=== PATIENT | male | born 1940 | race Caucasian/White ===

== ENCOUNTER 2019-03-29 18:00 | Inpatient (IN) | payer OTHER ==
[~2019-03-29] VITALS: Ht 182.9 cm; Wt 77.3 kg
[~2019-03-29 18:00] MED LIST: ACET325T45 GTB; ALBU2.5V3 NEB; AMIN30LI GTB; APIX2.5T GTB; BALS60OI TOP; BENG30OI TOP; BICT1TAB GTB; BISA10SU55 RC; BISA5TAB6 GTB; BROVANA NEB; CHOL4POW GTB; FERR220S17 GTB; FURO-109 GTB; FURO40TA4 PO; GABA250S2 GTB; GLUC1CAP9 GTB; HYDR-3671 GTB; HYDR-3671 PO; HYDR-3980 GTB; IPRA3AMP29 INHALATION; LANS15CA5 PO; LOPE1LIQ11 GTB; MAGN400O19 GTB; MENT10LO MM; METH-493 GTB; METH500T8 GTB; METO25TA4 GTB; MULT-105 GTB; MUPI22OI2 TOP; NA P133E39 RC; NST15PW TOP; ONDA4TAB13 GTB; PANT40TA4 GTB; POLY17PO6 PO; THIA100T56 GTB; VIT500LI GTB; ZINC220C5 GTB; ZOLP5TAB GTB; ZOLP5TAB PO
[2019-03-29 18:15] VITALS: Ht 182.9 cm; Wt 77.3 kg
[2019-03-29] MEDS ORDERED: VANCOMYCIN 1 GM (PMX) 250 ML IVPB STA (20:33)
[2019-03-29] MEDS ORDERED: CEFEPIME 1GM/50 ML (PMX) 50 ML IVPB STA (20:33)
[2019-03-29] MEDS ORDERED: VANCOMYCIN IV PER PHARMACY XX SCH (22:00)
[2019-03-29] MEDS ORDERED: NACL 0.9% 3 ML SYG IV SCH (22:00)
[2019-03-29] MEDS ORDERED: ACETAMINOPHEN 650 MG SUPP PR PRN (22:00)
[2019-03-29] MEDS ORDERED: ONDANSETRON 4 MG INJ IV PRN (22:00)
[2019-03-29] MEDS: PIPER-TAZO 3.375 GM IV (PMX) 100 ML IVPB SCH (23:00)
[2019-03-30] VITALS (7 sets, daily range): BP systolic 111–127; BP diastolic 74–84; PULSE 97–113; RESP 18–22
[2019-03-30] MEDS ORDERED: PIPER-TAZO 3.375 GM IV (PMX) 100 ML IVPB SCH
[2019-03-30] MEDS ORDERED: METOPROLOL 5 MG INJ IV ONE
[2019-03-30] MEDS ORDERED: MAGNESIUM HYDROXIDE 30ML CUP GTB PRN (02:30)
[2019-03-30] MEDS ORDERED: ALBUTEROL 0.083% (NEB) 2.5 MG/3 ML AMP NEB PRN (02:30)
[2019-03-30] MEDS ORDERED: ACETAMINOPHEN 325 MG TAB GTB PRN (02:30)
[2019-03-30] MEDS: METOPROLOL 25 MG TAB GTB SCH ×2 (03:52→08:40)
[2019-03-30] MEDS: SOD CHLORIDE 0.9% 1,000 ML IV SCH ×2 (03:52→11:12)
[2019-03-30] MEDS: PIPER-TAZO 3.375 GM IV (PMX) 100 ML IVPB SCH ×3 (05:32→21:32)
[2019-03-30] MEDS: METHOCARBAMOL 500 MG TAB GTB SCH ×3 (08:39→23:19)
[2019-03-30] MEDS: METHIMAZOLE 5 MG TAB GTB SCH (08:40)
[2019-03-30] MEDS: PANTOPRAZOLE 40 MG INJ IV SCH (11:11)
[2019-03-30] MEDS ORDERED: TRIMETHOPRIM/SULFAMETHOX (DS) TAB PO SCH (14:00)
[2019-03-30] MEDS: NYSTATIN 30 GM POWDER BTL TOP SCH (14:56)
[2019-03-30] MEDS: BALSAM PERU/CASTOR OIL 60 GM TUBE TOP SCH (14:56)
[2019-03-30] MEDS ORDERED: CASPOFUNGIN 50 MG in SOD CHLORIDE 0.9% 250 ML IVPB SCH (15:30)
[2019-03-30] MEDS ORDERED: NACL 3% FOR INHALATION 15 ML NEBU NEB ONE (16:00)
[2019-03-30] MEDS ORDERED: SOD CHLORIDE 0.9% 1,000 ML IV SCH (16:00)
[2019-03-30] MEDS ORDERED: DILTIAZEM 25 MG INJ IV PRN (17:30)
[2019-03-30] MEDS ORDERED: LIDOCAINE 1% (MPF) 5 ML VIAL ONE (18:20)
[2019-03-30] MEDS: METOPROLOL 50 MG TAB GTB SCH (21:30)
[2019-03-30] MEDS: VANCOMYCIN 1 GM 250 ML IVPB SCH (23:19)
[2019-03-31] VITALS (7 sets, daily range): BP systolic 115–155; BP diastolic 68–89; PULSE 79–110; RESP 18–20
[2019-03-31] MEDS ORDERED: VANCOMYCIN 1 GM 250 ML IVPB SCH
[2019-03-31] MEDS: PANTOPRAZOLE 40 MG INJ IV SCH (06:31)
[2019-03-31] MEDS: PIPER-TAZO 3.375 GM IV (PMX) 100 ML IVPB SCH ×3 (06:31→21:38)
[2019-03-31] MEDS: METHIMAZOLE 5 MG TAB GTB SCH (08:21)
[2019-03-31] MEDS: ZINC SULFATE 220 MG CAP GTB SCH (08:21)
[2019-03-31] MEDS: METHOCARBAMOL 500 MG TAB GTB SCH ×3 (08:21→21:38)
[2019-03-31] MEDS: POLYETHYLENE GLYCOL 17 GM PACKET PO SCH (08:22)
[2019-03-31] MEDS: BIKTARVY PO SCH (08:22)
[2019-03-31] MEDS: METOPROLOL 50 MG TAB GTB SCH ×2 (08:22→21:38)
[2019-03-31] MEDS: BALSAM PERU/CASTOR OIL 60 GM TUBE TOP SCH (08:25)
[2019-03-31] MEDS: NYSTATIN 30 GM POWDER BTL TOP SCH (08:25)
[2019-03-31] MEDS ORDERED: TRIMETHOPRIM/SULFAMETHOX (DS) TAB PO SCH (09:00)
[2019-03-31] MEDS ORDERED: METHIMAZOLE 5 MG TAB PO ONE (10:30)
[2019-03-31] MEDS ORDERED: DIGOXIN 500 MCG INJ IV ONE (15:00)
[2019-03-31] MEDS: ARFORMOTEROL TARTRATE 15MCG/2 ML AMP NEB SCH (20:15)
[2019-03-31] MEDS: VANCOMYCIN 1 GM 250 ML IVPB SCH (22:42)
[2019-04-01] MEDS ORDERED: ZOLPIDEM 5 MG TAB PO ONE (02:44)
[2019-04-01 04:00] VITALS: BP 128/85; PULSE 82; RESP 20
[2019-04-01] MEDS: PIPER-TAZO 3.375 GM IV (PMX) 100 ML IVPB SCH ×3 (06:07→22:08)
[2019-04-01] MEDS: PANTOPRAZOLE 40 MG INJ IV SCH (06:07)
[2019-04-01 07:59] VITALS: BP 114/63; PULSE 81; RESP 18
[2019-04-01] MEDS: POLYETHYLENE GLYCOL 17 GM PACKET PO SCH (09:00)
[2019-04-01] MEDS: METHOCARBAMOL 500 MG TAB GTB SCH ×3 (09:04→21:02)
[2019-04-01] MEDS: ZINC SULFATE 220 MG CAP GTB SCH (09:04)
[2019-04-01] MEDS: METHIMAZOLE 5 MG TAB GTB SCH (09:04)
[2019-04-01] MEDS: METOPROLOL 50 MG TAB GTB SCH ×2 (09:05→21:03)
[2019-04-01] MEDS: BALSAM PERU/CASTOR OIL 60 GM TUBE TOP SCH (09:05)
[2019-04-01] MEDS: FUROSEMIDE 20 MG INJ IV SCH (09:05)
[2019-04-01] MEDS: NYSTATIN 30 GM POWDER BTL TOP SCH (09:06)
[2019-04-01] MEDS: ARFORMOTEROL TARTRATE 15MCG/2 ML AMP NEB SCH ×2 (10:29→20:55)
[2019-04-01] MEDS: BIKTARVY PO SCH (11:11)
[2019-04-01 11:32] VITALS: BP 132/65; PULSE 74; RESP 18
[2019-04-01] MEDS ORDERED: POTASSIUM CHLORIDE 20 MEQ POWDER FOR ORAL SOLN GTB ONE (12:00)
[2019-04-01] MEDS: HYDROCODONE/APAP (5/325) TAB PO PRN (14:05)
[2019-04-01 15:15] VITALS: BP 111/57; PULSE 77; RESP 18
[2019-04-01 20:40] VITALS: BP 136/89; PULSE 78; RESP 22
[2019-04-01] MEDS: MUPIROCIN 2% 22 GM OINT TOP SCH (21:03)
[2019-04-01] MEDS: ZOLPIDEM 5 MG TAB PO PRN (22:11)
[2019-04-01] MEDS: VANCOMYCIN 1 GM 250 ML IVPB SCH (22:45)
[2019-04-01 23:39] VITALS: BP 134/73; PULSE 84; RESP 22
[2019-04-02] VITALS (9 sets, daily range): BP systolic 140–173; BP diastolic 67–91; PULSE 69–89; RESP 18–22
[2019-04-02] MEDS: PANTOPRAZOLE 40 MG INJ IV SCH (05:48)
[2019-04-02] MEDS: PIPER-TAZO 3.375 GM IV (PMX) 100 ML IVPB SCH ×3 (05:48→21:29)
[2019-04-02] MEDS: ARFORMOTEROL TARTRATE 15MCG/2 ML AMP NEB SCH ×2 (08:48→20:50)
[2019-04-02] MEDS: METHIMAZOLE 5 MG TAB GTB SCH (09:21)
[2019-04-02] MEDS: ZINC SULFATE 220 MG CAP GTB SCH (09:21)
[2019-04-02] MEDS: METHOCARBAMOL 500 MG TAB GTB SCH ×3 (09:21→21:28)
[2019-04-02] MEDS: METOPROLOL 50 MG TAB GTB SCH ×2 (09:22→21:28)
[2019-04-02] MEDS: BALSAM PERU/CASTOR OIL 60 GM TUBE TOP SCH (09:22)
[2019-04-02] MEDS: POLYETHYLENE GLYCOL 17 GM PACKET PO SCH (09:22)
[2019-04-02] MEDS: MUPIROCIN 2% 22 GM OINT TOP SCH ×2 (09:22→21:29)
[2019-04-02] MEDS: NYSTATIN 30 GM POWDER BTL TOP SCH (09:27)
[2019-04-02] MEDS: FUROSEMIDE 20 MG INJ IV SCH (09:46)
[2019-04-02] MEDS: BIKTARVY PO SCH (09:46)
[2019-04-02] MEDS ORDERED: POLYETHYLENE GLYCOL 17 GM PACKET PO PRN (14:00)
[2019-04-02] MEDS ORDERED: MAGNESIUM SULFATE 2 GM/50 ML 50 ML IVPB ONE (20:00)
[2019-04-02] MEDS: ZOLPIDEM 5 MG TAB PO PRN (21:29)
[2019-04-03] VITALS (7 sets, daily range): BP systolic 115–150; BP diastolic 55–88; PULSE 65–92; RESP 18–20
[2019-04-03] MEDS: HYDROCODONE/APAP (5/325) TAB PO PRN (04:58)
[2019-04-03] MEDS: PIPER-TAZO 3.375 GM IV (PMX) 100 ML IVPB SCH ×3 (05:00→21:37)
[2019-04-03] MEDS: PANTOPRAZOLE 40 MG INJ IV SCH (05:00)
[2019-04-03] MEDS: NYSTATIN 30 GM POWDER BTL TOP SCH (09:00)
[2019-04-03] MEDS: BALSAM PERU/CASTOR OIL 60 GM TUBE TOP SCH (09:19)
[2019-04-03] MEDS: METHOCARBAMOL 500 MG TAB GTB SCH (09:19)
[2019-04-03] MEDS: BIKTARVY PO SCH (09:19)
[2019-04-03] MEDS: METHIMAZOLE 5 MG TAB GTB SCH (09:19)
[2019-04-03] MEDS: MUPIROCIN 2% 22 GM OINT TOP SCH ×2 (09:19→21:37)
[2019-04-03] MEDS: ZINC SULFATE 220 MG CAP GTB SCH (09:19)
[2019-04-03] MEDS: FUROSEMIDE 20 MG INJ IV SCH (09:20)
[2019-04-03] MEDS: METOPROLOL 50 MG TAB GTB SCH ×2 (09:20→21:39)
[2019-04-03] MEDS: ARFORMOTEROL TARTRATE 15MCG/2 ML AMP NEB SCH ×2 (09:58→20:54)
[2019-04-03] MEDS ORDERED: METHOCARBAMOL 500 MG TAB GTB PRN (10:30)
[2019-04-03] MEDS ORDERED: CHOLESTYRAMINE 4 GM PACKET GTB SCH (21:00)
[2019-04-03] MEDS: CHOLESTYRAMINE 4 GM PACKET GTB SCH (21:38)
[2019-04-03] MEDS: ZOLPIDEM 5 MG TAB PO PRN (21:49)
[2019-04-03] MEDS ORDERED: VANCOMYCIN 1.25 GM/NS 250 ML 250 ML IVPB SCH (23:00)
[2019-04-04] VITALS (7 sets, daily range): BP systolic 103–144; BP diastolic 62–85; PULSE 65–90; RESP 18–19
[2019-04-04] MEDS: PANTOPRAZOLE 40 MG INJ IV SCH (05:31)
[2019-04-04] MEDS: PIPER-TAZO 3.375 GM IV (PMX) 100 ML IVPB SCH ×3 (05:32→21:20)
[2019-04-04] MEDS: HYDROCODONE/APAP (5/325) TAB PO PRN (05:40)
[2019-04-04] MEDS: METHIMAZOLE 5 MG TAB GTB SCH (08:28)
[2019-04-04] MEDS: METOPROLOL 50 MG TAB GTB SCH ×2 (08:29→21:24)
[2019-04-04] MEDS: MUPIROCIN 2% 22 GM OINT TOP SCH ×2 (08:29→21:25)
[2019-04-04] MEDS: METHOCARBAMOL 500 MG TAB PO SCH (08:29)
[2019-04-04] MEDS: BALSAM PERU/CASTOR OIL 60 GM TUBE TOP SCH (08:30)
[2019-04-04] MEDS: ZINC SULFATE 220 MG CAP GTB SCH (08:31)
[2019-04-04] MEDS: FUROSEMIDE 20 MG INJ IV SCH (08:32)
[2019-04-04] MEDS: NYSTATIN 30 GM POWDER BTL TOP SCH (08:56)
[2019-04-04] MEDS: BIKTARVY PO SCH ×2 (09:00→15:05)
[2019-04-04] MEDS ORDERED: HEPARIN 5,000 UNIT/1 ML VIAL SC SCH (09:00)
[2019-04-04] MEDS: ARFORMOTEROL TARTRATE 15MCG/2 ML AMP NEB SCH ×2 (12:08→20:35)
[2019-04-04] MEDS: CHOLESTYRAMINE 4 GM PACKET GTB SCH ×2 (12:46→21:20)
[2019-04-04] MEDS: ZOLPIDEM 5 MG TAB PO PRN (21:20)
[2019-04-05] MEDS: HYDROCODONE/APAP (5/325) TAB PO PRN ×2 (02:19→23:42)
[2019-04-05 04:03] VITALS: BP 118/78; PULSE 72; RESP 19
[2019-04-05] MEDS: PANTOPRAZOLE 40 MG INJ IV SCH (05:36)
[2019-04-05] MEDS: PIPER-TAZO 3.375 GM IV (PMX) 100 ML IVPB SCH ×3 (05:36→21:13)
[2019-04-05 08:00] VITALS: BP 138/85; PULSE 84; RESP 19
[2019-04-05] MEDS: BIKTARVY PO SCH (09:27)
[2019-04-05] MEDS: CHOLESTYRAMINE 4 GM PACKET GTB SCH ×2 (09:27→21:13)
[2019-04-05] MEDS: ZINC SULFATE 220 MG CAP GTB SCH (09:27)
[2019-04-05] MEDS: METOPROLOL 50 MG TAB GTB SCH ×2 (09:27→21:14)
[2019-04-05] MEDS: METHOCARBAMOL 500 MG TAB PO SCH (09:28)
[2019-04-05] MEDS: FUROSEMIDE 20 MG INJ IV SCH (09:28)
[2019-04-05] MEDS: METHIMAZOLE 5 MG TAB GTB SCH (09:28)
[2019-04-05] MEDS: MUPIROCIN 2% 22 GM OINT TOP SCH ×2 (09:29→21:13)
[2019-04-05] MEDS: BALSAM PERU/CASTOR OIL 60 GM TUBE TOP SCH (09:29)
[2019-04-05 11:22] VITALS: BP 136/66; PULSE 68; RESP 19
[2019-04-05] MEDS: ARFORMOTEROL TARTRATE 15MCG/2 ML AMP NEB SCH ×2 (12:33→19:57)
[2019-04-05 15:38] VITALS: BP 139/85; PULSE 80; RESP 19
[2019-04-05 19:29] VITALS: BP 152/88; PULSE 79; RESP 18
[2019-04-05] MEDS: NYSTATIN 30 GM POWDER BTL TOP SCH (19:39)
[2019-04-05] MEDS: ZOLPIDEM 5 MG TAB PO PRN (23:37)
[2019-04-06] VITALS (8 sets, daily range): BP systolic 112–154; BP diastolic 62–86; PULSE 64–90; RESP 18–20
[2019-04-06] MEDS: PANTOPRAZOLE 40 MG INJ IV SCH (06:20)
[2019-04-06] MEDS: ARFORMOTEROL TARTRATE 15MCG/2 ML AMP NEB SCH ×2 (09:18→19:38)
[2019-04-06] MEDS: BIKTARVY PO SCH (10:06)
[2019-04-06] MEDS: NYSTATIN 30 GM POWDER BTL TOP SCH (10:06)
[2019-04-06] MEDS: METHOCARBAMOL 500 MG TAB PO SCH (10:06)
[2019-04-06] MEDS: METHIMAZOLE 5 MG TAB GTB SCH (10:07)
[2019-04-06] MEDS: CHOLESTYRAMINE 4 GM PACKET GTB SCH ×2 (10:07→21:00)
[2019-04-06] MEDS: ZINC SULFATE 220 MG CAP GTB SCH (10:07)
[2019-04-06] MEDS: METOPROLOL 50 MG TAB GTB SCH ×2 (10:07→22:52)
[2019-04-06] MEDS: FUROSEMIDE 20 MG INJ IV SCH (10:08)
[2019-04-06] MEDS: MUPIROCIN 2% 22 GM OINT TOP SCH ×2 (10:08→21:00)
[2019-04-06] MEDS: BALSAM PERU/CASTOR OIL 60 GM TUBE TOP SCH (10:08)
[2019-04-06] MEDS: HYDROCODONE/APAP (5/325) TAB PO PRN (10:16)
[2019-04-06] MEDS ORDERED: BARIUM SULFATE 135 ML (E-Z HD) PO ONE (12:57)
[2019-04-07] VITALS (7 sets, daily range): BP systolic 128–155; BP diastolic 73–86; PULSE 68–94; RESP 18–22
[2019-04-07] MEDS: CHOLESTYRAMINE 4 GM PACKET GTB SCH ×3 (01:14→20:29)
[2019-04-07] MEDS: HYDROCODONE/APAP (5/325) TAB PO PRN ×2 (04:45→20:32)
[2019-04-07] MEDS: PANTOPRAZOLE 40 MG INJ IV SCH (06:33)
[2019-04-07] MEDS: ARFORMOTEROL TARTRATE 15MCG/2 ML AMP NEB SCH ×2 (09:00→20:00)
[2019-04-07] MEDS: ZINC SULFATE 220 MG CAP GTB SCH (09:54)
[2019-04-07] MEDS: METHIMAZOLE 5 MG TAB GTB SCH (09:54)
[2019-04-07] MEDS: FUROSEMIDE 20 MG INJ IV SCH (09:55)
[2019-04-07] MEDS: METOPROLOL 50 MG TAB GTB SCH ×2 (09:57→20:31)
[2019-04-07] MEDS: BALSAM PERU/CASTOR OIL 60 GM TUBE TOP SCH (10:00)
[2019-04-07] MEDS: MUPIROCIN 2% 22 GM OINT TOP SCH ×2 (10:00→20:32)
[2019-04-07] MEDS: NYSTATIN 30 GM POWDER BTL TOP SCH (10:00)
[2019-04-07] MEDS: BIKTARVY PO SCH (12:06)
[2019-04-07] MEDS ORDERED: LOPERAMIDE HCL 1 MG/7.5 ML GTB PRN (16:30)
[2019-04-07] MEDS: ZOLPIDEM 5 MG TAB PO PRN (20:31)
[2019-04-08 00:45] VITALS: BP 137/81; PULSE 84; RESP 21
[2019-04-08 04:28] VITALS: BP 141/83; PULSE 81; RESP 22
[2019-04-08] MEDS: PANTOPRAZOLE 40 MG INJ IV SCH (05:50)
[2019-04-08] MEDS ORDERED: DIPHENHYDRAMINE 50 MG INJ IV ONE (06:00)
[2019-04-08] MEDS: ARFORMOTEROL TARTRATE 15MCG/2 ML AMP NEB SCH ×2 (07:45→20:00)
[2019-04-08 07:48] VITALS: BP 142/79; PULSE 79; RESP 20
[2019-04-08] MEDS: BIKTARVY PO SCH (09:29)
[2019-04-08] MEDS: METOPROLOL 50 MG TAB GTB SCH ×2 (09:35→21:29)
[2019-04-08] MEDS: FUROSEMIDE 20 MG INJ IV SCH (09:36)
[2019-04-08] MEDS: METHIMAZOLE 5 MG TAB GTB SCH (09:36)
[2019-04-08] MEDS: HYDROCODONE/APAP (5/325) TAB PO PRN ×3 (09:36→21:28)
[2019-04-08] MEDS: NYSTATIN 30 GM POWDER BTL TOP SCH (09:37)
[2019-04-08] MEDS: BALSAM PERU/CASTOR OIL 60 GM TUBE TOP SCH (09:37)
[2019-04-08] MEDS: MUPIROCIN 2% 22 GM OINT TOP SCH (09:37)
[2019-04-08] MEDS: ZINC SULFATE 220 MG CAP GTB SCH (09:37)
[2019-04-08] MEDS: CHOLESTYRAMINE 4 GM PACKET GTB SCH ×3 (09:38→21:28)
[2019-04-08 12:22] VITALS: BP 119/64; PULSE 73; RESP 20
[2019-04-08 16:03] VITALS: BP 133/94; PULSE 91; RESP 20
[2019-04-08 19:16] VITALS: BP 123/70; PULSE 90; RESP 21
[2019-04-08] MEDS: ZOLPIDEM 5 MG TAB PO PRN (21:30)
[2019-04-09] MEDS ORDERED: DIPHENHYDRAMINE 25 MG CAP PO PRN (01:00)
[2019-04-09 02:00] VITALS: BP 131/73; PULSE 88; RESP 21
[2019-04-09] MEDS: CEPASTAT LOZENGE MT PRN ×3 (04:28→21:52)
[2019-04-09] MEDS: PANTOPRAZOLE (EC) 40 MG TAB PO SCH (06:12)
[2019-04-09 07:09] VITALS: BP 122/66; PULSE 95; RESP 20
[2019-04-09] MEDS: ARFORMOTEROL TARTRATE 15MCG/2 ML AMP NEB SCH ×2 (08:08→21:13)
[2019-04-09] MEDS: CHOLESTYRAMINE 4 GM PACKET GTB SCH ×2 (08:14→21:52)
[2019-04-09] MEDS: ZINC SULFATE 220 MG CAP GTB SCH (08:15)
[2019-04-09] MEDS: METOPROLOL 50 MG TAB GTB SCH ×2 (08:15→21:52)
[2019-04-09] MEDS: FUROSEMIDE 20 MG INJ IV SCH (08:15)
[2019-04-09] MEDS: METHIMAZOLE 5 MG TAB GTB SCH (08:15)
[2019-04-09] MEDS: NYSTATIN 30 GM POWDER BTL TOP SCH (08:16)
[2019-04-09] MEDS: BALSAM PERU/CASTOR OIL 60 GM TUBE TOP SCH (08:16)
[2019-04-09] MEDS: HYDROCODONE/APAP (5/325) TAB PO PRN (08:16)
[2019-04-09] MEDS: BIKTARVY PO SCH (10:20)
[2019-04-09 11:32] VITALS: BP 115/79; PULSE 76; RESP 20
[2019-04-09 15:12] VITALS: BP 130/72; PULSE 84; RESP 20
[2019-04-09 19:15] VITALS: BP 141/71; PULSE 82; RESP 18
[2019-04-09 23:26] VITALS: BP 115/68; PULSE 77; RESP 18
[2019-04-10] MEDS: ZOLPIDEM 5 MG TAB PO PRN ×2 (01:12→22:50)
[2019-04-10] MEDS: HYDROCODONE/APAP (5/325) TAB PO PRN ×3 (01:12→22:51)
[2019-04-10 04:00] VITALS: BP 128/74; PULSE 88; RESP 18
[2019-04-10] MEDS: CEPASTAT LOZENGE MT PRN (04:28)
[2019-04-10] MEDS: PANTOPRAZOLE (EC) 40 MG TAB PO SCH (05:38)
[2019-04-10 08:16] VITALS: BP 95/66; PULSE 94; RESP 18
[2019-04-10] MEDS: ARFORMOTEROL TARTRATE 15MCG/2 ML AMP NEB SCH ×2 (08:18→19:54)
[2019-04-10] MEDS: BALSAM PERU/CASTOR OIL 60 GM TUBE TOP SCH (08:38)
[2019-04-10] MEDS: ZINC SULFATE 220 MG CAP GTB SCH (08:39)
[2019-04-10] MEDS: METHIMAZOLE 5 MG TAB GTB SCH (08:39)
[2019-04-10] MEDS: BIKTARVY PO SCH (08:40)
[2019-04-10] MEDS: FUROSEMIDE 20 MG INJ IV SCH (08:40)
[2019-04-10] MEDS: CHOLESTYRAMINE 4 GM PACKET GTB SCH ×2 (08:40→21:13)
[2019-04-10] MEDS: METOPROLOL 50 MG TAB GTB SCH ×2 (08:40→21:14)
[2019-04-10] MEDS: NYSTATIN 30 GM POWDER BTL TOP SCH (08:41)
[2019-04-10 11:41] VITALS: BP 125/69; PULSE 104; RESP 18
[2019-04-10 15:59] VITALS: BP 123/77; PULSE 97; RESP 18
[2019-04-10 19:37] VITALS: BP 113/89; PULSE 115; RESP 18
[2019-04-11] VITALS (8 sets, daily range): BP systolic 88–117; BP diastolic 56–64; PULSE 64–99; RESP 18–20
[2019-04-11] MEDS: HYDROCODONE/APAP (5/325) TAB PO PRN ×2 (05:49→15:01)
[2019-04-11] MEDS: PANTOPRAZOLE (EC) 40 MG TAB PO SCH (05:50)
[2019-04-11] MEDS: ARFORMOTEROL TARTRATE 15MCG/2 ML AMP NEB SCH ×2 (08:08→20:00)
[2019-04-11] MEDS: METHIMAZOLE 5 MG TAB GTB SCH (08:28)
[2019-04-11] MEDS: ZINC SULFATE 220 MG CAP GTB SCH (08:28)
[2019-04-11] MEDS: CHOLESTYRAMINE 4 GM PACKET GTB SCH ×2 (08:29→21:09)
[2019-04-11] MEDS: METOPROLOL 50 MG TAB GTB SCH ×2 (08:29→21:00)
[2019-04-11] MEDS: BIKTARVY PO SCH (08:29)
[2019-04-11] MEDS: FUROSEMIDE 20 MG INJ IV SCH (08:30)
[2019-04-11] MEDS: NYSTATIN 30 GM POWDER BTL TOP SCH (08:30)
[2019-04-11] MEDS: BALSAM PERU/CASTOR OIL 60 GM TUBE TOP SCH (08:30)
[2019-04-11] MEDS: morphine 2 MG INJ IV PRN ×2 (17:57→22:08)
[2019-04-12] MEDS: ZOLPIDEM 5 MG TAB PO PRN (01:05)
[2019-04-12] MEDS: HYDROCODONE/APAP (5/325) TAB PO PRN (01:26)
[2019-04-12 02:56] VITALS: BP 102/63; PULSE 86; RESP 16
[2019-04-12] MEDS: PANTOPRAZOLE (EC) 40 MG TAB PO SCH (06:10)
[2019-04-12] MEDS: morphine 2 MG INJ IV PRN ×2 (06:12→12:31)
[2019-04-12] MEDS: ZINC SULFATE 220 MG CAP GTB SCH (08:59)
[2019-04-12] MEDS: METHIMAZOLE 5 MG TAB GTB SCH (08:59)
[2019-04-12] MEDS: CHOLESTYRAMINE 4 GM PACKET GTB SCH (09:00)
[2019-04-12] MEDS: METOPROLOL 50 MG TAB GTB SCH (09:00)
[2019-04-12] MEDS: FUROSEMIDE 20 MG INJ IV SCH (09:01)
[2019-04-12] MEDS: NYSTATIN 30 GM POWDER BTL TOP SCH (09:15)
[2019-04-12] MEDS: ARFORMOTEROL TARTRATE 15MCG/2 ML AMP NEB SCH (09:30)
== END 2019-04-12 16:22 | DRG 193 ==
LOC: E/R 18:00 → TEL 21:49 → EDBEDREQ 22:06 → 6WM 03-30 21:22 → 5EC 04-06 17:54 → 6WM 04-06 21:56 → 2NE 04-11 23:03
PROVIDERS: ADMIT Family Medicine; ATTEND Family Medicine
PROC: 0W9930Z Drainage of Right Pleural Cavity with Drainage Device, Percutaneous Approach (ICD-10-PCS; principal; 2019-03-30)
DX: J18.9 Pneumonia, unspecified organism (principal); I50.43 Acute on chronic combined systolic (congestive) and diastolic (congestive) heart failure; R04.2 Hemoptysis; N17.9 Acute kidney failure, unspecified; I42.9 Cardiomyopathy, unspecified; E44.0 Moderate protein-calorie malnutrition; J90 Pleural effusion, not elsewhere classified; J44.0 Chronic obstructive pulmonary disease with (acute) lower respiratory infection; E46 Unspecified protein-calorie malnutrition; Y95 Nosocomial condition; E03.9 Hypothyroidism, unspecified; Z87.891 Personal history of nicotine dependence; Z68.23 Body mass index [BMI] 23.0-23.9, adult; R13.10 Dysphagia, unspecified; R63.4 Abnormal weight loss; K86.89 Other specified diseases of pancreas; K76.89 Other specified diseases of liver; G89.29 Other chronic pain; M54.5 Low back pain; E05.90 Thyrotoxicosis, unspecified without thyrotoxic crisis or storm; I48.0 Paroxysmal atrial fibrillation; D69.6 Thrombocytopenia, unspecified; N40.0 Benign prostatic hyperplasia without lower urinary tract symptoms; I12.9 Hypertensive chronic kidney disease with stage 1 through stage 4 chronic kidney disease, or unspecified chronic kidney disease; N18.9 Chronic kidney disease, unspecified; I27.20 Pulmonary hypertension, unspecified; R53.81 Other malaise; E83.42 Hypomagnesemia; R62.7 Adult failure to thrive; D53.1 Other megaloblastic anemias, not elsewhere classified; Z93.1 Gastrostomy status
CPT/HCPCS: 36415; 71045; 71250; 74176; 74181; 74182; 74230; 76775; 76942; 80048; 80053; 80061; 80202; 81001; 82105; 82270; 82378; 82550; 82553; 82607; 82710; 82746; 83036; 83540; 83735; 83880; 84100; 84157; 84436; 84439; 84443; 84479; 84481; 84484; 85014; 85018; 85025; 85610; 85730; 86301; 86360; 86480; 86580; 86635; 86641; 86701; 86703; 86704; 86709; 86803; 87015; 87045; 87070; 87075; 87081; 87086; 87102; 87116; 87177; 87205; 87275; 87276; 87279; 87280; 87281; 87340; 87400; 87449; 87536; 92526; 92610; 92611; 93005; 93306; 94640; 94664; 97110; 97162; 97530; C9113; J0692; J1200; J1644; J1940; J2270; J2405; J2543; J3370; J3475; J7030; J7050